=== PATIENT | male | born 1975 | race Caucasian/White ===

== ENCOUNTER → 2016-10-01 | Outpatient (CLI) | payer BC ==
[~2016-10-01] MED LIST: DAYQLIQ PO; HYDR-4079 PO; NAPR1TAB9 PO; [UNRECOGNIZED DRUG - OTHER] PO
--- NOTE | 2016-10-01 16:58 | DIAGNOSTIC IMAGING REPORT ---
LEFT HIP UNILATERAL 2 VIEWS CLINICAL HISTORY: M25.552 LEFT HIP PAIN COMPARISON: None. DISCUSSION: No acute fractures are visualized. There are osteoarthritic changes with mild narrowing of the superior joint compartment. There is a femoral head neck bump. This is a nonspecific finding which has been reported in femoral acetabular impingement syndrome. IMPRESSION: 1. No acute fractures 2. Moderate osteoarthritic changes 3. Femoral head neck bump, a nonspecific finding which has been reported in femoral acetabular impingement syndrome Electronically signed by: Krunal Caballero M.D. 10/01/2016 4:57 PM Dictated Date/Time: 10/01/2016 4:55 PM
--- NOTE | 2016-10-01 16:59 | DIAGNOSTIC IMAGING REPORT ---
LEFT HEEL MIN 2 VIEWS CLINICAL HISTORY: M25.552 LEFT HEEL PAIN COMPARISON: None. DISCUSSION: There is a moderate plantar calcaneal spur, and tiny Achilles insertional spur. No acute fractures are visualized. No destructive lesions are evident. IMPRESSION: Calcaneal spurring Electronically signed by: Krunal Caballero M.D. 10/01/2016 4:58 PM Dictated Date/Time: 10/01/2016 4:57 PM
== END | disposition home or self-care (01) ==
LOC: C.RAD 16:21
PROVIDERS: ATTEND Family Medicine
DX: M25.552 Pain in left hip (principal); M79.672 Pain in left foot; M77.32 Calcaneal spur, left foot; M16.12 Unilateral primary osteoarthritis, left hip; M89.8X8 Other specified disorders of bone, other site

== ENCOUNTER → 2016-10-19 | Outpatient (CLI) | payer BC ==
[~2016-10-19] MED LIST changes: -DAYQLIQ PO; -HYDR-4079 PO; -[UNRECOGNIZED DRUG - OTHER] PO
[2016-10-19 12:46] LABS: C-REACTIVE PROTEIN < 0.29 mg/dl (0-0.29); RHEUMATOID FACTOR < 10.0 U/mL (0-15)
[2016-10-21 22:21] LABS: HLA-B27** TC 528X NEGATIVE (NEGATIVE)
--- NOTE | 2016-10-22 11:11 | CODING QUERY NO DIAGNOSIS ---
TREATMENT RENDERED WITHOUT A DIAGNOSIS To promote full compliance with coding requirements relating to patient care, physician participation is requested in all cases of performance architect uncertainty. Please assist us with providing a diagnosis/symptom for the test(s) below: A diagnosis/symptom was not documented on your Order. A valid diagnosis/symptom is required to bill all insurances. Please remember that we are unable to code a diagnosis of rule out, probable, possible, questionable, or suspected. Tests that require a diagnosis: DOS 10/19 * KOURTNEY, CRP, ESR DIAGNOSIS: * Rheumatoid Facto DIAGNOSIS: Provider Signature: Date: Thank you Angelia [facility] Information Management Once completed, please kindly fax back to [phone] For questions please call [phone]
== END | disposition home or self-care (01) ==
LOC: C.RAD 11:22
PROVIDERS: ATTEND Podiatrist Foot & Ankle Surgery
DX: G57.62 Lesion of plantar nerve, left lower limb (principal); M77.32 Calcaneal spur, left foot; M72.2 Plantar fascial fibromatosis; R26.2 Difficulty in walking, not elsewhere classified; M79.672 Pain in left foot; M79.671 Pain in right foot

== ENCOUNTER → 2016-11-10 | Outpatient (CLI) | payer BC ==
--- NOTE | 2016-11-10 11:50 | DIAGNOSTIC IMAGING REPORT ---
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 PROCEDURE: The risks, benefits, and alternatives to the procedure were discussed with the patient. Written informed consent was obtained. The patient was placed supine on the fluoroscopy table, and a left hip injection was performed under fluoroscopic guidance. The area was prepped and draped in the usual aseptic fashion. The skin and deeper soft tissues were anesthetized with local 1% lidocaine. The left hip joint was accessed utilizing a 22-gauge needle, and approximately 1 mL of Optiray 300 was injected into the joint space to confirm intra-articular location. Subsequently, a mixture of 2 mL of Celestone and 5 mL of Marcaine 0.5% were injected into the joint. The procedure was well tolerated and without immediate complication. Fluoroscopy dosage (mGy): Not available. Fluoroscopy time: 18 seconds. Number of fluoroscopic spot images: None. IMPRESSION: Successful therapeutic injection of the left hip joint under fluoroscopic guidance. Electronically signed by: Elder Boswell M.D. 11/10/2016 11:49 AM Dictated Date/Time: 11/10/2016 11:44 AM
== END | disposition home or self-care (01) ==
LOC: C.RADBC 09:40
PROVIDERS: ATTEND Orthopaedic Surgery
DX: M16.12 Unilateral primary osteoarthritis, left hip (principal)

== ENCOUNTER → 2017-02-01 | Outpatient (CLI) | payer BC ==
--- NOTE | 2017-02-01 21:21 | DIAGNOSTIC IMAGING REPORT ---
MRI THE LEFT FOOT NO CONTRAST CLINICAL HISTORY: Left posterior foot pain. Evaluate posterior tibial tendon COMPARISON STUDY: No previous studies for comparison. FINDINGS: Imaging was performed in the sagittal, axial, and coronal planes. There are no areas of marrow edema to indicate occult fracture or bone bruise. There is no evidence of ligamentous disruption. There is edema surrounding the calcaneal insertion of the plantar fascia. There is mild anterior inferior calcaneal edema at the level of calcaneal spur. The findings are consistent with plantar fasciitis. No tendon tears are visualized. There is increased signal within the fibularis brevis tendon. This likely indicates mild tendinopathy. This is likely an incidental finding as the patient's pain is contralateral. No ganglion cysts are visualized. IMPRESSION: 1. Plantar fasciitis 2. Suspected mild tendinopathy of the fibularis brevis tendon Electronically signed by: Krunal Caballero M.D. 02/01/2017 9:19 PM Dictated Date/Time: 02/01/2017 9:09 PM
== END | disposition home or self-care (01) ==
LOC: C.MRI 19:12
PROVIDERS: ATTEND Podiatrist Foot & Ankle Surgery
DX: M77.32 Calcaneal spur, left foot (principal); G57.62 Lesion of plantar nerve, left lower limb; R26.2 Difficulty in walking, not elsewhere classified; M21.612 Bunion of left foot; M72.2 Plantar fascial fibromatosis

== ENCOUNTER 2017-03-15 07:03 | Day surgery (SDC) | payer BC ==
[2017-03-08 10:23] VITALS: BMI 35.0
--- NOTE | 2017-03-14 11:10 | HISTORY & PHYSICAL EXAMINATION ---
DATE OF ADMISSION: 03/15/2017 HISTORY OF PRESENT ILLNESS: A 41-year-old male presents for preop evaluation. Pain is located in the left heel. Severity of the condition is graded as an 8 on a 10-point scale on the left, gradually worsening over time. The patient describes as aching, sore, stabbing and tender. Condition was first noticed over a year ago. The patient denies any recent exposure or precipitation event for history for this condition. Associated signs and symptoms include swelling on the left and tenderness. Heat does not change the pain. Ice, orthotics, physical therapy, rest and strapping have had little long-term relief for the patient. Past treatment and tests include MRIs, injections, x-rays, narcotics, nonsteroidals, orthotics, physical therapy, rest and strapping. Due to the nature and severity of the discomfort, he is requesting surgical intervention. We have discussed surgical intervention at length, and due to scheduling, the patient is electing to proceed with a lesser surgery than previously recommended due to the recovery time and job restrictions. PAST SURGICAL HISTORY: Total hip on the right. PAST MEDICAL HISTORY: Osteoarthritis and DJD. MEDICATIONS: Flexeril and hydrocodone. ALLERGIES: No known medical allergies. FAMILY HISTORY: SLE in mother; colon cancer and CAD in father. SOCIAL HISTORY: The patient has a prior history of tobacco use and currently drinks alcohol socially. REVIEW OF SYSTEMS: Unremarkable except chief complaint. PHYSICAL EXAMINATION: VITAL SIGNS: Height 6 feet 4 inches, weight 283 pounds, body mass index 34, blood pressure 138/94. CONSTITUTIONAL: The patient appears well developed and nourished with good attention to body grooming and habitus. EARS, NOSE, MOUTH AND THROAT: Unremarkable. EYES: Conjunctival and pupillary reaction to light and accommodation normal. NECK: Neck is supple. Trachea is midline. CARDIOVASCULAR: Normal S1, S2, without murmur, gallops, rubs or clicks noted. RESPIRATORY: Chest is symmetric. No scars are visible. No port or pacemaker noted. GASTROINTESTINAL: No tenderness or rigidity noted. LOWER EXTREMITIES: DP palpable. PT palpable. DERMATOLOGIC: No skin rash, subcutaneous nodules, lesions or ulcers observed. NEUROLOGICAL: Touch, pin, vibratory pain, proprioception sensations are absent. Epicritic sensations over the posterior tibial nerve, left 4th to S3 is diminished. MUSCULOSKELETAL: Muscle tone is normal. Muscle strength is 5/5 in all groups tested. Examination of the heel shows improved pain over the plantar medial aspect of the calcaneus on the left. Decreased ankle joint range of motion with knee flexed and extended. Nerve conduction study of the left medial calcaneal nerve showed no response in the ankle. There was absent left calcaneal potential suggesting calcaneal neuropathy but no tarsal tunnel syndrome, other neuropathies, polyneuropathy, myopathy or left lumbosacral radiculopathy on 11/10/2016. MRI of the left foot on 02/01/2017 showed edema surrounding the calcaneal insertion of plantar fascia, increased signal within the fibular brevis tendon indicates mild tendinopathy, suspected mild tendinopathy of the fibular brevis tendon. IMPRESSION: 1. Heel spur syndrome, left. 2. Plantar fasciitis, left. 3. Calcaneal neuropathy, left. 4. Equinus. 5. Neuritis medial branch of the posterior tibial nerve, difficulty walking, pain in lower extremity, tendonopathy of peroneus brevis tendon noted on MRI, not apparent on clinical exam. PLAN: Discussed the most common etiology of the discomfort and treatment options such as physical therapy, steroid injections, stretching and orthotics. Due to the nature and severity of the discomfort, the patient elected to proceed with surgical intervention. Surgical procedures to be performed: 1. EPF left foot. This will be performed under general anesthesia as an outpatient at the hospital in the supine position. Procedure, risks and complications were fully reviewed with the patient. Consent form, foot diagram and illustration reviewed in all their entirety. The patient's questions were answered and complications were discussed in detail with the patient including pain, infection, swelling that may or may not be excessive, pins and needles feeling, numbness, metatarsalgia, excessive bleeding, delay or nonhealing of bone, delay or nonhealing of skin, enlarged scar, failure of the procedure, reoccurrence or worsening of condition which may or may not require further surgery, adverse reaction and allergy to suture or other implant material, loss of toe, foot, or leg, flail toe, stiff toe, short toe, elevated toe, transfer lesion or callus, peripheral neurovascular complications such as phlebitis, damage to nerves or vascular structures, severe or chronic pain, chronic nerve pain or damage, and general medical complications. The patient will be required to be nonweightbearing in a cast for a minimum of 6-8 weeks, followed by weightbearing, cast immobilization for 2-4 weeks, not return to dress shoe for 3 months depending on the postop edema. The patient is aware this is an elective type procedure and I recommend a second opinion. The patient stated they understood. Consent form was signed with a copy of the foot diagram and illustration given to the patient. We have previously discussed open heel spur resection, excision of mass on the left calcaneus, plantar fasciotomy of the left foot, neuroplasty of the medial calcaneal nerve in the left lower extremity. We are deferring this at this time due to the postoperative recovery phase, he is unable to walk and elected to proceed with endoscopic plantar fasciotomy at this time. He will return to the office for postop check or sooner if medically necessary. Instructed to keep the dressing clean, dry and intact until seen at the office. At the time of the preoperative appointment, prescriptions for Clinoril, Keflex and Percocet were dispensed.
[~2017-03-15] VITALS: Ht 193 cm; Wt 131.8 kg
[~2017-03-15 07:03] MED LIST changes: +BUPIVACAINE 0.5 % 5 MG/1 ML PF 10ML VIAL ONE; +CEFAZOLIN 3000MG IV PUSH 15 ML IV SCH; +CLONIDINE HCL 100 MCG/ML SYRINGE ONE; +DAYQLIQ PO; +HYDR-4079 PO; +LACTATED RINGER'S 1000ML 1,000 ML IV SCH; +MEPIVACAINE HCL 1.5% 30 ML VIAL ONE; -NAPR1TAB9 PO; +SODIUM CHLORIDE 0.9% 1000ML IV SCH
[2017-03-15] MEDS ORDERED: SODIUM CHLORIDE 0.9% 1000ML 1,000 ML IV SCH ×2 (07:04→11:04)
--- NOTE | 2017-03-15 07:04 | History & Physical Bridge Note ---
H&P Re-Evaluation Bridge Note: I have examined the patient, reviewed the History & Physical and in the interval since the performance of the History & Physical I have noted the following changes of clinical significance: No changes noted
[2017-03-15] MEDS ORDERED: MIDAZOLAM HCL 1 MG/ML 2ML VIAL ONE (07:33)
[2017-03-15] MEDS ORDERED: FENTANYL CITRATE INJ 50 MCG/1 ML 2 ML VIAL ONE (07:33)
[2017-03-15 07:42] VITALS: BP 135/92; PULSE 81; TEMP 36.7; O2SAT 96; Ht 193 cm; Wt 131.8 kg
[2017-03-15] MEDS ORDERED: CEFAZOLIN SOD 3000MG/15 ML IV PUSH IV ONE (07:58)
[2017-03-15] MEDS ORDERED: LIDOCAINE HCL 1% 20 ML VIAL ONE (08:15)
[2017-03-15] MEDS ORDERED: BUPIVACAINE 0.5 % 5 MG/1 ML MPF 30ML VIAL ONE (08:16)
--- NOTE | 2017-03-15 09:44 | OPERATIVE REPORT ---
DATE OF OPERATION: 03/15/2017 PREOPERATIVE DIAGNOSES: Plantar fasciitis, left. POSTOPERATIVE DIAGNOSES: Same. PROCEDURES: Endoscopic plantar fasciotomy, left foot. SURGEON: Dr. Mcfadden. ANESTHESIA: General anesthesia with regional field block performed by anesthesia. HEMOSTASIS: Pneumatic calf tourniquet inflated to 300 mmHg for a total tourniquet time of 24 minutes. ESTIMATED BLOOD LOSS: Less than 1 mL. MATERIALS: 3-0 Vicryl, 4-0 nylon. HISTOPATHOLOGY None. COMPLICATIONS: None. CONDITION: The patient tolerated the procedure and anesthesia well without complications, transferred to recovery room with vital signs stable and neurovascular status intact. PROCEDURE: The patient was brought to the OR and placed on the OR table in supine position. Upon completion of regional field block performed by anesthesia in the operative holding area and general anesthesia the left extremity was scrubbed, prepped and draped in the usual aseptic fashion. Attention was directed to the plantar medial aspect of the left calcaneus where previously the plantar fascia attachment to the tubercle was noted to be 6.5 cm from the nonweightbearing posterior surface. Small stab incision was made over this area where the plantar skin meets over the intersection of relaxed skin tension lines in this area. A small stab incision was made. This was carefully deepened with care to preserve all neurovascular structures. Trocar was placed just plantar to the plantar fascia band from medial to lateral. This band was then visualized with a camera and incised from medial to lateral through and through. The trocar and cannula were removed and then was replaced for any additional fibers. All bands of the plantar fascia were cut from medial to lateral. The area was copiously lavaged with normal saline. Closure began in the deep structures using 3-0 Vicryl and skin margins were reopposed with 4-0 Vicryl in a simple interrupted fashion. Pneumatic ankle tourniquet was released with normal hyperemic brunson to digits 1 through 5. The patient tolerated the procedure and anesthesia well without complications. Dry sterile compressive dressing consisting of Adaptic, 4 x 4's, Kerlix and an Armando was applied. The patient tolerated the procedure and anesthesia well without complications, transferred to recovery room with vital signs stable and neurovascular status intact. I attest to the content of the Intraoperative Record and any orders documented therein. Any exception s are noted below.
[2017-03-15] MEDS ORDERED: LIDOCAINE HCL 2% 2 ML VIAL (20MG/ML) ONE (09:46)
[2017-03-15] MEDS ORDERED: DEXAMETHASONE SOD INJ 4 MG/ML VIAL ONE (09:46)
[2017-03-15] MEDS ORDERED: PROPOFOL IV EMULSION 10 MG/ML 20 ML VIAL IV ONE (09:47)
[2017-03-15] MEDS ORDERED: ONDANSETRON INJ 2 MG/ML 2 ML VIAL ONE (09:47)
[2017-03-15] MEDS ORDERED: EpHEDrine SULFATE INJ 50 MG/ML AMP IV PRN (10:00)
[2017-03-15] MEDS ORDERED: ATROPINE SULFATE 0.1 MG/ML 5ML SYR IV PRN (10:00)
--- NOTE | 2017-03-15 10:10 | Anesthesiology Progress Note ---
Anesthesia Post Op Note Date & Time Mar 15, 2017 at 10:10 Vital Signs Pain Intensity: 0 Vital Signs Past 12 Hours Date Time Temp Pulse Resp B/P (MAP) Pulse Ox O2 Delivery O2 Flow Rate FiO2 03/15/17 10:00 77 16 109/73 95 Room Air 03/15/17 09:50 73 16 113/78 97 Oxymask 10 03/15/17 09:40 36.6 71 16 111/65 99 Oxymask 10 03/15/17 07:42 36.7 81 18 135/92 (106) 96 Room Air Notes Mental Status: alert / awake / arousable, participated in evaluation Pt Amnestic to Procedure: Yes Nausea / Vomiting: adequately controlled Pain: adequately controlled Airway Patency, RR, SpO2: stable & adequate BP & HR: stable & adequate Hydration State: stable & adequate Anesthetic Complications: no major complications apparent
[2017-03-15 10:20] VITALS: BP 117/84; PULSE 70; TEMP 36.6; O2SAT 96
[2017-03-15 10:40] VITALS: BP 122/70; PULSE 76; O2SAT 98
[2017-03-15 11:20] VITALS: BP 119/63; PULSE 82; TEMP 36.6; O2SAT 96
--- NOTE | 2017-03-15 11:37 | Discharge Instructions ---
Discharge Instructions Date of Service Mar 15, 2017. Admission Reason for Admission: Plantarfascitis Discharge Discharge Diagnosis / Problem: s/p plantarfascitis surgery Discharge Goals Goal(s): Decrease discomfort Activity Recommendations Activity Limitations: resume your previous activity Lifting Limitations: until after follow-up appointment Exercise/Sports Limitations: until after follow-up appointment May Resume Sexual Activity: when tolerated Shower/Bathe: keep incision dry Driving or Machine Use: Weightbearing Status: Left weightbearing (in surgical shoe) . Current Hospital Diet Patient's current hospital diet: Discharge Diet Recommended Diet: Regular Diet Fluid Restriction: None Procedures Procedures Performed: Left Foot Endoscopic Planter Fasciectomy Pending Studies Studies pending at discharge: no Medical Emergencies . Who to Call and When: Medical Emergencies: If at any time you feel your situation is an emergency, please call 911 immediately. . Non-Emergent Contact Non-Emergency issues call your: Primary Care Provider Call Non-Emergent contact if: temperature is above 101 . "Provider Documentation" section prepared by Karina Kelly. . VTE Core Measure Inpt VTE Proph given/why not?: Treatment not indicated
== END 2017-03-15 12:00 | disposition home or self-care (01) ==
LOC: C.ACU 07:03
PROVIDERS: ATTEND Podiatrist Foot & Ankle Surgery
DX: M72.2 Plantar fascial fibromatosis (principal)